=== PATIENT | female | born 1985 | race Caucasian/White ===

== ENCOUNTER 2020-09-22 11:02 | Outpatient (CLI) | payer OTHER | END 2020-09-22 11:04 | disposition home or self-care (01) | LOC: SONOGRAMA 11:02 | DX: N64.59 Other signs and symptoms in breast (principal); N64.4 Mastodynia ==

== ENCOUNTER 2022-06-19 04:05 | Emergency (ER) | payer OTHER ==
[~2022-06-19] VITALS: Ht 160 cm; Wt 52.2 kg
[2022-06-19] MEDS ORDERED: CIPRO500 MG PO (07:41)
[2022-06-19] MEDS ORDERED: KETO10TA2 PO (07:41)
== END 2022-06-19 08:13 | disposition home or self-care (01) ==
LOC: ER 04:05
DX: R10.32 Left lower quadrant pain (principal)